=== PATIENT | female | born 1975 | race Asian ===

== ENCOUNTER 2023-05-24 20:12 | Emergency (ER) | payer OTHER, SELFPAY ==
[2023-05-24 20:21] VITALS: BP 172/101; PULSE 76; RESP 16; TEMP 36.4; O2SAT 93; BMI 23.4
--- NOTE | 2023-05-24 20:30 | XRR_ITS ---
PROCEDURE INFORMATION: Exam: XR Right Foot Exam date and time: 05/24/2023 8:38 PM Age: 47 years old Clinical indication: Pain; Foot; Right; Additional info: Injury TECHNIQUE: Imaging protocol: Radiologic exam of the right foot. Views: 3 or more views. COMPARISON: No relevant prior studies available. FINDINGS: Bones/joints: No evidence of acute fracture or dislocation. No erosive disease. No significant degenerative change. Soft tissues: Normal. XR/XR foot RT min 3V* [id number] IMPRESSION: No acute bony injury.
--- NOTE | 2023-05-24 20:34 | W.ED.EXTPRO ---
HPI - Extremity Problem General: Chief complaint: Extremity Injury, Lower Stated complaint: Right foot sore Time Seen by Provider: 05/24/23 20:12 Source: patient Mode of arrival: ambulatory Limitations: no limitations History of Present Illness: 47-year-old female states she been having some right heel pain over the last 1 to 2 weeks. States she has no pain at rest but it is painful to walk she denies any injuries. She denies any fevers. States pain is currently a 6 out of 10. Associated symptoms: Deny chest pain, fever(s) or rash Review of Systems Const: Denies: fever(s) or chills ENMT: Denies: throat pain or dental pain Card: Denies: chest pain Resp: Denies: dyspnea GI: Denies: abdominal pain, nausea, vomiting or diarrhea Musc: Reports: extremity pain; Denies: neck pain or back pain Skin/Breast: Denies: rash All/Imm: Denies: urticaria Physical Exam Const: COMMON NORMALS: no acute distress, patient oriented x3 and healthy appearing HENMT: COMMON NORMALS: normocephalic and atraumatic HEAD & SCALP: normocephalic and atraumatic Eye: COMMON NORMALS: conjunctivae normal CONJUNCTIVA: Yes conjunctivae normal Neck/C-Spine: COMMON NORMALS: full ROM and supple Chest: COMMONS NORMALS: normal inspection of the chest Resp: COMMON NORMALS: normal respiratory effort Cardio: COMMON NORMALS: regular rate, regular rhythm and No murmurs present (Cardio) RATE: regular rate RHYTHM: regular rhythm GI: INSPECTION: Yes normal to inspection Extremity: COMMON NORMALS: full ROM NARRATIVE EXTREMITY EXAM: Slight tenderness over left heel no warmth to touch no obvious deformity Neuro: COMMON NORMALS: patient oriented x3, moves all extremities and no focal motor deficits Psych: COMMON NORMALS: mental status grossly normal, Normal thought process present and cooperative THOUGHT PROCESS: Normal thought process present Skin: COMMON NORMALS: no rashes or lesions noted and no wounds GENERAL SKIN EXAM: no rashes or lesions noted Course Vital Signs: Vital signs: Vital Signs Temperature 97.5 F L 05/24/23 20:21 Pulse Rate 75 05/24/23 20:37 Respiratory Rate 16 05/24/23 20:21 Blood Pressure 141/90 05/24/23 20:37 Pulse Oximetry 97 05/24/23 20:37 Oxygen Delivery Me thod Room Air 05/24/23 20:37 MDM - Extremity (Nontraumatic) Medical Decision Making Patient presents here with right foot pain x-ray here is normal her exam is benign some tenderness over the right heel we will Yoel wrap placed her on Naprosyn she is to ice and will get her follow-up with podiatry. Imaging Data xr r foot: I personally reviewed and interpreted this imaging study as follows: My impression: no acute abnormality Discharge Plan Discharge Patient Disposition: Home Clinical Impression: Foot pain, right Condition: Stable Prescriptions: New Naprosyn 500 mg tablet 500 mg PO BID PRN (Reason: pain) Qty: 20 0RF Discharge Orders: Discharge ED (Routine); Ordered 05/24/23 Ordered By: Luis Carlos Cooper Referrals: Yann Steward DPM [Physician] - 1-3 days Discharge Diet: Advance as tolerated Discharge Activity: Increase activity as tolerated Patient Instructions: Foot Contusion (ED) Coding Level of Care Code ED Clinic Licensed Practical Nurse for Tamar Granda
[2023-05-24 20:37] VITALS: BP 141/90; PULSE 75; O2SAT 97
[2023-05-24] MEDS: naproxen 500 mg Tablet PO (20:47)
[2023-05-24 21:07] VITALS: BP 154/78; PULSE 74; RESP 16; O2SAT 98
--- NOTE | 2023-05-25 08:38 | DCPLANNER ---
Addendum entered by Edith Maddox 06/01/23 11:39: Patient had a follow up appointment scheduled with ortho - patient did not attend appointment. Original Note: manager commercial real estate had message to schedule a follow up appointment for patient with podiatry. manager commercial real estate sent patients information to the front office staff at podiatry. Patients information will be printed and reviewed. Clinic will call patient with appointment information.
--- NOTE | 2023-05-25 09:58 | DCPLANNER ---
Addendum entered by Edith Maddox 06/23/23 12:29: Patient did not attend appointment Original Note: editorial manager called patient due to no primary care physician. editorial manager spoke with patient, who stated that she would like to get established with a provider. editorial manager called [facility] Family Medicine, a follow up appointment was scheduled for June at 1:[address] Joyner. editorial manager gave patient the appointment information and phone number to the clinic.
== END 2023-05-24 21:09 | disposition home or self-care (01) ==
PROVIDERS: Emergency Provider Emergency Medicine
DX: M79.671 Pain in right foot (principal)
CPT/HCPCS: 73630; 99283

== ENCOUNTER 2025-01-23 23:30 | Emergency (ER) | payer OTHER, SELFPAY ==
[2025-01-23 23:38] VITALS: BP 152/83; PULSE 81; RESP 16; TEMP 36.7; O2SAT 94
--- NOTE | 2025-01-24 01:12 | XRR_ITS ---
PROCEDURE INFORMATION: Exam: XR Right Ribs with PA Chest Exam date and time: 01/24/2025 1:20 AM Age: 49 years old Clinical indication: Chest wall pain; Right; Additional info: Rib pain, cough TECHNIQUE: Imaging protocol: Radiologic exam of the right ribs with PA chest. Views: 3 views COMPARISON: No relevant prior studies available. FINDINGS: Lungs: Unremarkable. No consolidation. Pleural spaces: Unremarkable. No pleural effusion. No pneumothorax. Heart/Mediastinum: Unremarkable. No cardiomegaly. Bones/joints: Unremarkable. XR/XR ribs RT mn 3V w CXR1V [id number] IMPRESSION: No acute findings.
[2025-01-24] MEDS: ketorolac 60 mg/2 mL INJ IM (01:27)
[2025-01-24 01:38] VITALS: BP 168/100; PULSE 76; RESP 15; O2SAT 99
[2025-01-24 02:00] VITALS: BP 168/100; PULSE 76; RESP 16; O2SAT 95
[2025-01-24 02:14] LABS: Influenza A NEGATIVE (Negative); Influenza B NEGATIVE (Negative); Respiratory Syncytial Virus Ce NEGATIVE (Negative); SARS-CoV-2 PCR NEGATIVE (Negative)
[2025-01-24 02:30] VITALS: BP 151/87; PULSE 65; RESP 17; O2SAT 97
[2025-01-24 02:49] VITALS: BP 151/87; PULSE 65; O2SAT 97
--- NOTE | 2025-01-24 04:38 | W.ED.GENADLT ---
HPI - General Adult General: Chief complaint: Upper Respiratory Infection Stated complaint: Coughing, Pain in L ribs Time Seen by Provider: 01/24/25 01:00 History of Present Illness: This patient is a 49-year-old female who presents to the emergency department with pain along the right rib cage along the bra line. Pain started yesterday. No rash. She has been coughing for about 4 weeks. No fever. Related Data Previous Rx's ?Medication ?Instructions ?Recorded naproxen 500 mg tablet (Naprosyn) 500 mg PO BID PRN pain #20 tabs 05/24/23 acyclovir 800 mg tablet 800 mg PO QID #20 tabs 01/24/25 hydrocodone 5 mg-acetaminophen 325 1 tab PO Q4H PRN pain #20 tabs 01/24/25 mg tablet Allergies Allergy/AdvReac Type Severity Reaction Status Date / Time No Known Allergies Allergy Verified 01/23/25 23:44 Review of Systems General: Reports: 10 or more systems reviewed and unremarkable except in HPI and below Resp: Reports: non-productive cough Skin/Breast: Reports: skin pain and skin tenderness Physical Exam Const: COMMON NORMALS: no acute distress, patient oriented x3 and no limitations GENERAL APPEARANCE: cooperative and comfortable HENMT: COMMON NORMALS: normocephalic, atraumatic, Normal nasal mucous membranes and turbinates present, moist oral mucous membranes and oropharynx normal HEAD & SCALP: normal to inspection, normocephalic and atraumatic FACE & SINUS: normal facial exam NOSE: Normal nasal mucous membranes and turbinates present Eye: COMMON NORMALS: Equal, round and reactive pupils present, EOMs intact bilaterally and conjunctivae normal GENERAL EYE: appearance normal, both eyes and all related structures CONJUNCTIVA: Yes conjunctivae normal PUPIL: Yes Equal, round and reactive pupils present Neck/C-Spine: COMMON NORMALS: supple and no JVD Chest: COMMONS NORMALS: normal inspection of the chest Resp: COMMON NORMALS: normal respiratory effort and clear to auscultation bilaterally AUSCULTATION: clear to auscultation bilaterally Cardio: COMMON NORMALS: no JVD, regular rate, regular rhythm, No gallops present (Cardio), No murmurs present (Cardio) and No rub (Cardio) RATE: regular rate RHYTHM: regular rhythm GI: COMMON NORMALS: Normal to inspection, nondistended, normoactive bowel sounds present, Soft to palpation and non-tender AUSCULTATION: Yes normoactive bowel sounds PALPATION: Yes Soft to palpation : COMMON NORMALS: Yes no CVA tenderness BLADDER/KIDNEY EXAM: Yes no CVA tenderness Back/Pelvis: COMMON NORMALS: no CVA tenderness and thoracic and lumbar spine normal to inspection Extremity: COMMON NORMALS: normal to inspection Neuro: COMMON NORMALS: patient oriented x3 and CN's II-XII intact bilaterally Psych: COMMON NORMALS: mental status grossly normal, Normal thought process present and cooperative THOUGHT PROCESS: Normal thought process present Skin: COMMON NORMALS: no rashes or lesions noted, turgor normal and no jaundice NARRATIVE SKIN EXAM: The skin overlying the right rib devulcanizer tender to touch, this was along dermatomal distribution. GENERAL SKIN EXAM: no rashes or lesions noted and turgor normal Course Vital Signs: Vital signs: Vital Signs Temperature 98.0 F 01/23/25 23:38 Pulse Rate 65 01/24/25 02:49 Respiratory Rate 17 01/24/25 02:30 Blood Pressure 151/87 01/24/25 02:49 Pulse Oximetry 97 01/24/25 02:49 Oxygen Delivery Me thod Room Air 01/23/25 23:38 MDM - General Adult Medical Decision Making COVID, RSV and influenza negative. Chest x-ray and right rib films were normal. I think it is likely that the patient has shingles but has not developed a rash yet. I did place her on acyclovir and hydrocodone. Recommended she follow-up with primary care provider within 1 week for recheck. She was discharged in stable condition. Lab Data Radiology Impressions Ribs X-Ray 01/24/25 01:12 IMPRESSION: No acute findings. Laboratory Results Influenza A (PCR) Negative (Negative) 01/24/25 01:33 Influenza Type B (PCR) Negative (Negative) 01/24/25 01:33 RSV (PCR) Negative (Negative) 01/24/25 01:33 SARS-CoV-2 (PCR) Negative (Negative) 01/24/25 01:33 All radiology interpretation(s) finalized by discharge Discharge Plan Discharge Patient Disposition: Home Clinical Impression: Rib pain on right side Condition: Stable Prescriptions: New acyclovir 800 mg tablet 800 mg PO QID Qty: 20 0RF hydrocodone-acetaminophen 5-325 mg tablet 1 tab PO Q4H PRN (Reason: pain) Qty: 20 0RF No Action Naprosyn 500 mg tablet 500 mg PO BID PRN (Reason: pain) Qty: 20 0RF Discharge Orders: Discharge ED (Routine); Ordered 01/24/25 Ordered By: Stevenson Russo Patient Instructions: Opioid Safety, Pain Management, Shingles Activity Restrictions/Additional Instructions: Follow-up with your primary care provider in 1 week for recheck. Print Language: Northern Irish Coding Level of Care Code ED Supervisor [place] for Tamar Granda
== END 2025-01-24 02:50 | disposition home or self-care (01) ==
PROVIDERS: Emergency Provider Emergency Medicine
DX: R07.81 Pleurodynia (principal); Z11.52 Encounter for screening for COVID-19
CPT/HCPCS: 71101; 87637; 96372; 99284; J1885

== ENCOUNTER 2025-08-28 22:40 | Emergency (ER) | payer OTHER, SELFPAY ==
[2025-08-28 23:04] VITALS: BP 148/88; PULSE 67; RESP 16; TEMP 36.8; O2SAT 98; BMI 23.1
[2025-08-29] VITALS (8 sets, daily range): BP systolic 138–175; BP diastolic 72–99; PULSE 67–84; RESP 15–18; O2SAT 97–99
--- NOTE | 2025-08-29 03:07 | PC.NURSE ---
This RN called civil engineering drafter at , spoke with Beronica #[phone].
--- NOTE | 2025-08-29 03:46 | ECG_ITS ---
[facility] 2025-[facility]29 Pat Name: Jeramy Casillas Department: Room: Gender: Female Modeler: : 1975 Requested By: Greer Snyder Order Number: [id number] Smith MD: Nader Cobb M.D. Measurements Intervals [place] Rate: 66 P: -10 ME: 151 QRS: 31 QRSD: 90 T: 23 QT: 424 QTc: 447 Interpretive Statements SINUS RHYTHM NONSPECIFIC T-WAVE ABNORMALITY Compared to ECG 07/04/2016 22:42:27 T-wave abnormality now present Electronically Signed On 08-31-2025 12:04:49 CDT by Nader Cobb M.D. [email or web address]
[2025-08-29 03:50] LABS: Glucose Urine UA Negative (Normal); Nitrate Urine Negative (Negative); Specific Gravity, Urine 1.010 (1.005-1.030)
--- NOTE | 2025-08-29 03:53 | ED_ITS ---
HPI - Recheck/Abnormal Lab/Rx 2 General: Chief Complaint: Recheck/Abnormal Lab/Rx Stated Complaint: dizzy heartburn Time Seen by Provider: 08/29/25 02:01 History of Present Illness: Patient is a 50-year-old female presenting with a chief complaint of dizziness since Tuesday. There is a significant language barrier and patient has difficulty describing the feeling but states that it does not feel like a spinning sensation/vertigo. Patient does not have a headache, denies vision changes, difficulty with speech, swallowing, facial asymmetry, hearing changes/ear pain, focal numbness, focal weakness or difficulty with coordination or ambulation/ataxia. Patient has not been ill with fever, upper respiratory symptoms and denies chest pain or shortness of breath. She denies any abdominal pain, nausea or vomiting. Patient denies dysuria or hematuria. Patient has not suffered a syncopal event, denies hemoptysis, lower extremity swelling. She has a h/o HTN and HLD but has not been taking her cholesterol medications. She is otherwise healthy, denies previous h/o sgy, [place]/CAD, lung problems, CVA, DVT/PE. Related Data Previous Rx's ?Medication ?Instructions ?Recorded naproxen 500 mg tablet (Naprosyn) 500 mg PO BID PRN pa in #20 tabs 05/24/23 acyclovir 800 mg tablet 800 mg PO QID #20 tabs 01/24 hydrocodone 5 mg-acetaminophen 325 1 tab PO Q4H PRN pa in #20 tabs 01/24/25 mg tablet Allergies Allergy/AdvReac Type Severity Reaction Status Date / Time No Known Allergies Allergy Verified 01/23/25 23:44 Physical Exam 2 Narrative: EXAM NARRATIVE: Vital signs were reviewed. Patient is alert and oriented. PERRL, EOMI, no nystagmus. TMs are normal b/l. Patient is breathing comfortably, no increased WOB or accessory muscle use. SpO2 is above 95% on RA. Lungs are clear bilaterally without rhonchi, wheezing or crackles. Heart sounds are normal. No hypotension or tachycardia. Patient is moving all extremities, no deformity or gross injury. Neuro: Awake, alert, strength equal bilaterally. No sensory deficit. Able to perform FNF, heel to cardozo. Ambulatory. Able to perform tandem gait. There is no ataxia. CRANIAL NERVES: II: Pupils equal and reactive, III, IV, : EOM intact, no gaze preference or deviation, no nystagmus. V: normal sensation in V1, V2, and V3 segments bilaterally VII: no asymmetry, no nasolabial fold flattening VIII: normal hearing to speech IX, X: normal palatal elevation, no uvular deviation XI: 5/5 head turn and 5/5 shoulder shrug bilaterally XII: midline tongue protrusion Course 2 Vital Signs: Vital signs: Vital Signs Temperature 98.2 F 08/28/25 23:04 Pulse Rate 77 08/29/25 04:52 Respiratory Rate 15 08/29/25 04:30 Blood Pressure 142/72 08/29/25 04:52 Pulse Oximetry 98 08/29/25 04:30 Oxygen Delivery Me thod Room Air 08/29/25 02:00 MDM - Recheck/Abnormal Lab/Rx Medical Decision Making 50-year-old female presenting with a chief complaint of dizziness for several days. Differential diagnosis is broad and includes vertigo, migraine, CVA, viral upper respiratory infection, ACS, PE, pna, orthostatic hypotension, dehydration, cardiac arrhythmia, UTI, vertigo, ear infection, other. On exam patient is bit hypertensive but otherwise hemodynamically stable. She has a nonfocal neurologic exam. Patient was treated with IV fluids and evaluated with CBC, CMP, troponin, D-dimer, UA, EKG. patient has a normal white blood cell count and is not anemic. Patient has adequate kidney function. She has mildly decreased potassium which will be replaced orally. Troponin is normal. UA does not show evidence of infection. Orthostatic BP is normal. At this time, I do not appreciate an emergent cause of patient's dizziness. Patient was counseled on supportive care at home, given return precautions and discharged in stable condition with recommendation for follow-up with her primary care physician. Lab Data 08/29/25 04:24 08/29/25 04:24 Laboratory Results WBC 9.07 10^3/uL (3.29-11.43) 08/29/25 04:24 RBC 4.13 10^6/uL (3.85-5.65) 08/29/25 04:24 Hgb 12.40 g/dL (11.27-16.99) 08/29/25 04:24 Hct 36.7 % (36-47) 08/29/25 04:24 MCV 88.9 fl (85-98) 08/29/25 04:24 MCH 30.0 pg (27-33) 08/29/25 04:24 MCHC 33.8 g/dL (30-55) 08/29/25 04:24 RDW 12.5 % (12.1-15.1) 08/29/25 04:24 Plt Count 218 10^3/cmm (157-399) 08/29/25 04:24 MPV 9.8 fL (7.4-10.4) 08/29/25 04:24 Neut % (Auto) 61.0 % 08/29/25 04:24 Lymph % (Auto) 29.9 % 08/29/25 04:24 [place] % (Auto) 6.4 % 08/29/25 04:24 Eos % (Auto) 2.0 % 08/29/25 04:24 Baso % (Auto) 0.6 % 08/29/25 04:24 Neut # (Auto) 5.54 10^3/uL (1.8-7.7) 08/29/25 04:24 Lymph # (Auto) 2.7 10^3/uL (0.8-4.8) 08/29/25 04:24 [place] # (Auto) 0.6 10^3/uL (0.2-0.9) 08/29/25 04:24 Eos # (Auto) 0.2 10^3/uL (0.0-0.8) 08/29/25 04:24 Baso # (Auto) 0.1 10^3/uL (0.0-0.1) 08/29/25 04:24 Nucleated RBC % (auto) 0 % 08/29/25 04:24 Nucleated RBCs # 0.0 /100WBC 08/29/25 04:24 D-Dimer 0.28 ug/mLFEU (0-0.59) 08/29/25 04:24 Sodium 144 mmol/L (136-145) 08/29/25 04:24 Potassium 3.2 mmol/L (3.5-5.1) L 08/29/25 04:24 Chloride 106 mmol/L (98-107) 08/29/25 04:24 Carbon Dioxide 24 mmol/L (22-29) 08/29/25 04:24 Anion Gap 17.2 (5-19) 08/29/25 04:24 BUN 9 mg/dL (6-20) 08/29/25 04:24 Creatinine 0.4 mg/dL (0.5-0.9) L 08/29/25 04:24 GFR Calculation 167.6 mL/min (90-130) H 08/29/25 04:24 Glucose 121 mg/dL (65-115) H 08/29/25 04:24 Calculated Osmolality 298 mOsm/kg (285-295) H 08/29/25 04:24 Calcium 8.9 mg/dL (8.5-10.5) 08/29/25 04:24 Total Bilirubin 0.3 mg/dL (0.15-1.2) 08/29/25 04:24 AST 14 U/L (0-32) 08/29/25 04:24 ALT 12 U/L (0-33) 08/29/25 04:24 Alkaline Phosphatase 97 U/L (35-105) 08/29/25 04:24 Troponin T Baseline < 6 ng/L (0-10) 08/29/25 04:24 Total Protein 6.2 g/dL (6.6-8.7) L 08/29/25 04:24 Albumin 4.2 g/dL (3.5-5.2) 08/29/25 04:24 Globulin 2.0 g/dL (1.3-4.6) 08/29/25 04:24 Urine Color Yellow (Yellow) 08/29/25 03:42 Urine Appearance Clear (CLEAR) 08/29/25 03:42 Urine pH 7.5 (5-7) 08/29/25 03:42 Ur Specific [place] 1.010 (1.005-1.030) 08/29/25 03:42 Urine Protein Negative (Negative) 08/29/25 03:42 Urine Glucose (UA) Negative (Normal) 08/29/25 03:42 Urine Ketones Negative (Negative) 08/29/25 03:42 Urine Blood Negative (Negative) 08/29/25 03:42 Urine Nitrate Negative (Negative) 08/29/25 03:42 Urine Bilirubin Negative (Negative) 08/29/25 03:42 Urine Urobilinogen 0.2 mg/dL (Negative) 08/29/25 03:42 Ur Leukocyte Esterase Negative (Negative) 08/29/25 03:42 Urine RBC 0-2 /hpf (0-2) 08/29/25 03:42 Urine WBC 0-5 /hpf (0-5) 08/29/25 03:42 Ur Squamous Epith Cells 0-5 /hpf (0-5) 08/29/25 03:42 Amorphous Sediment Not Reportable 08/29/25 03:42 Urine Bacteria None seen /hpf (NONE) 08/29/25 03:42 Hyaline Casts 0-4 /lpf H 08/29/25 03:42 No radiology studies performed this visit EKG Data EKG 1: Interpretation: Normal sinus rhythm with a heart rate of 66, normal axis, normal intervals, no ST segment elevation. There is no morphologic evidence suggestive of WPW, ARVD or Brugada. Discharge Plan Discharge Patient Disposition: Home Clinical Impression: Dizziness Condition: Stable Prescriptions: No Action Naprosyn 500 mg tablet 500 mg PO BID PRN (Reason: pain) Qty: 20 0RF acyclovir 800 mg tablet 800 mg PO QID Qty: 20 0RF hydrocodone-acetaminophen 5-325 mg tablet 1 tab PO Q4H PRN (Reason: pain) Qty: 20 0RF Discharge Orders: Discharge ED (Routine); Ordered 08/29/25 Ordered By: Greer Snyder Patient Instructions: Opioid Safety, Pain Management, Patient Portal & [place] Instructions, Dizziness Activity Restrictions/Additional Instructions: Please continue to monitor your condition closely at home. If your condition worsens or additional concerns arise, please return promptly to the emergency department for reassessment. Follow up with your primary care doctor in one week. Print Language: Chinese Coding Level of Care Code ED Military Logistics Specialist for Tamar Granda
[2025-08-29 03:55] LABS: Add Urine Microscopic? YES
[2025-08-29 04:29] LABS: Hematocrit 36.7 % (36-47); Hemoglobin 12.40 g/dL (11.27-16.99); Mean Corpuscular HGB Conc 33.8 g/dL (30-55); Mean Corpuscular Hemoglobin 30.0 pg (27-33); Mean Corpuscular Volume 88.9 fl (85-98); Nucleated Red Blood Cells % 0 %; Platelet Count 218 10^3/cmm (157-399); Red Blood Count 4.13 10^6/uL (3.85-5.65); White Blood Count 9.07 10^3/uL (3.29-11.43)
[2025-08-29 04:48] LABS: Troponin(5th) Baseline < 6 ng/L (0-10)
[2025-08-29 04:51] LABS: Alanine Aminotransferase 12 U/L (0-33); Albumin Level 4.2 g/dL (3.5-5.2); Alkaline Phosphatase 97 U/L (35-105); Anion Gap 17.2 (5-19); Aspartate Amino Transferase 14 U/L (0-32); Blood Urea Nitrogen 9 mg/dL (6-20); Calcium 8.9 mg/dL (8.5-10.5); Carbon Dioxide 24 mmol/L (22-29); Chloride 106 mmol/L (98-107); Creatinine Clr Calc Pharmacy 165.6415; Globulin 2.0 g/dL (1.3-4.6); Glucose 121 mg/dL (65-115); Osmolality Calculated 298 mOsm/kg (285-295); Potassium 3.2 mmol/L (3.5-5.1); Sodium 144 mmol/L (136-145); Total Protein 6.2 g/dL (6.6-8.7)
--- NOTE | 2025-08-29 06:04 | PC.NURSE ---
This RN called historical interpreter monika, spoke with Karen, ID # [id number] regarding d/c. Pt had no questions or concerns.
== END 2025-08-29 06:15 | disposition home or self-care (01) ==
PROVIDERS: Emergency Provider Emergency Medicine
DX: R42 Dizziness and giddiness (principal); I10 Essential (primary) hypertension; E78.5 Hyperlipidemia, unspecified
CPT/HCPCS: 36415; 80053; 81001; 84484; 85025; 85378; 93005; 96360; 99284; J7120; J9999